=== PATIENT | female | born 1955 | race African-American/Black ===

== ENCOUNTER 2022-01-31 11:54 | Outpatient (CLI) | payer SELFPAY ==
[2022-01-31 22:04] LABS: Magnesium* 1.8 mg/dL (1.5-2.6)
== END 2022-01-31 11:55 | disposition home or self-care (01) ==
LOC: LKVREF 11:54
PROVIDERS: PCP Emergency Medicine; Visit Provider Emergency Medicine
DX: E83.42 Hypomagnesemia (principal)
CPT/HCPCS: 83735

== ENCOUNTER 2022-02-04 15:51 | Outpatient (CLI) | payer SELFPAY ==
[2022-02-05 15:11] LABS: Albumin* 4.8 g/dL (3.3-5.0)
[2022-02-05 15:14] LABS: Bilirubin Direct* 0.2 mg/dL (0.0-0.5); Bilirubin Total* 0.3 mg/dL (0.1-1.5); Total Protein* 8.3 g/dL (6.0-8.3)
[2022-02-05 15:15] LABS: Alanine Aminotransferase* 15 U/L (4-35); Alkaline Phosphatase* 69 U/L (40-150); Aspartate Amino Transferase* 19 U/L (12-35); Lipase* 99 U/L (23-300)
[2022-02-05 15:48] LABS: HIV 1/2/P24 Combo Screen* Negative (Negative)
[2022-02-05 17:20] LABS: Hepatitis C Virus Antibody* Negative (Negative)
== END 2022-02-04 15:52 | disposition home or self-care (01) ==
PROVIDERS: PCP Emergency Medicine; Visit Provider Physician Assistant Medical
DX: Z00.00 Encounter for general adult medical examination without abnormal findings (principal); I10 Essential (primary) hypertension; R73.03 Prediabetes; R53.83 Other fatigue; E87.6 Hypokalemia; E78.5 Hyperlipidemia, unspecified
CPT/HCPCS: 80076; 83690; 86703; 86803

== ENCOUNTER 2022-02-05 15:51 | Outpatient (CLI) | payer SELFPAY ==
[2022-02-05 21:46] LABS: H pylori Ag Stool* POSITIVE (Negative)
== END 2022-02-05 15:52 | disposition home or self-care (01) ==
LOC: LKVREF 17:33
PROVIDERS: PCP Emergency Medicine; Visit Provider Physician Assistant Medical
DX: I10 Essential (primary) hypertension (principal); R73.03 Prediabetes; E87.6 Hypokalemia; R53.83 Other fatigue; K21.9 Gastro-esophageal reflux disease without esophagitis
CPT/HCPCS: 87338

== ENCOUNTER 2022-02-13 14:17 | Observation (INO) | payer SELFPAY ==
[2022-02-13] VITALS (36 sets, daily range): BP systolic 117–238; BP diastolic 70–132; PULSE 73–123; RESP 16–20; TEMP 36.6–37.1; O2SAT 89–100; BMI 29.1
--- NOTE | 2022-02-13 | CRLHL7_ITS ---
For Patients: As a result of the Century Cures Act, medical imaging exams and procedure reports are released immediately into your electronic medical record. You may view this report before your referring provider. If you have questions, please contact your health care provider. HISTORY: Leg pain. TECHNIQUE: Ultrasound of the right and left lower extremity deep veins using crowell-scale, color Doppler, and spectral Doppler. COMPARISON: None. FINDINGS: Right: Common femoral, femoral, and popliteal veins are patent and compressible with normal response to augmentation. Deep femoral vein is patent and compressible. - Posterior tibial and peroneal veins are patent and compressible. Short-segment hypoechoic thrombus within what appears to be an intramuscular vein in the mid calf, likely a gastrocnemius vein. Involved vein is partially compressible. - Greater saphenous vein is patent and compressible. --- Left: Common femoral, femoral, and popliteal veins are patent and compressible with normal response to augmentation. Deep femoral vein is patent and compressible. - Posterior tibial vein is patent and compressible with normal response to augmentation. Peroneal vein is patent and compressible. - Greater saphenous vein is patent and compressible at the junction with the femoral vein. IMPRESSION: 1. DVT in an intramuscular vein in the mid right calf, likely a gastrocnemius vein. 2. No DVT in the left lower extremity. --- Called to Dr Robert Yeung on 02/13/22 at 1905 hours. Dictated by John Mckeon MD @ 02/13/2022 7:06:32 PM (Electronically Signed)
--- NOTE | 2022-02-13 15:24 | CRLHL7_ITS ---
For Patients: As a result of the Century Cures Act, medical imaging exams and procedure reports are released immediately into your electronic medical record. You may view this report before your referring provider. If you have questions, please contact your health care provider. INDICATION: Chest pain. TECHNIQUE: CT chest PE was acquired with 100 cc Isovue 370 IV contrast. COMPARISON: None. FINDINGS: Heart and vasculature: Contrast opacification of the pulmonary arterial tree is adequate. No sign of pulmonary embolism. Heart size is normal. Thoracic aorta and pulmonary artery are normal in caliber. Lungs and pleura: No suspicious nodules or infiltrates. No pleural effusions, pleural thickening, or pneumothorax. Lymph nodes/mediastinum: No mediastinal, hilar, or axillary adenopathy. Chest wall: No masses. Upper abdomen: No acute or significant findings. Bones: Unremarkable for age. IMPRESSION: No pulmonary embolism as questioned. Please note that all CT scans at this facility use dose modulation, iterative reconstruction, and/or weight-based dosing when appropriate to reduce radiation dose to as low as reasonably achievable. Dictated by Parish Sandhu MD @ 02/13/2022 6:00:32 PM (Electronically Signed)
--- NOTE | 2022-02-13 15:29 | ED_ITS ---
HPI - General Adult General Time Seen by Provider: 15:29 Date Seen: 02/13/22 Chief complaint: Chest Pain Stated complaint: Chest and Leg Pain Time Seen by Provider: 02/13/22 15:09 Source: patient Mode of arrival: ambulatory Limitations: no limitations History of Present Illness HPI narrative: Patient is a 66-year-old female who was referred from the clinic with ongoing chest pain after diagnosis of pneumonia at [facility]. She finished an antibiotic course and continues to have some left-sided chest discomfort. This is more pleuritic and it is tender to touch. She describes along the left breast bone medial to her breast she also says she has had some right calf pain, but has not noticed any swelling she states that hurts more when she walks. She has a complex medical history in her chart was reviewed. She has had a middle cerebral artery aneurysm, GERD, H pylori, hypertension, hypertensive urgency, elevated lipids, history of lactic acidosis. At this time she denies chest pain other than when she pushes on her chest or moves a certain way. She does still describe pain in her right calf especially when she walks but it is a little bit present at rest as well. She was concerned that she is not better from her pneumonia that she was diagnosed with that [facility] within the last week. Apparently the clinic her D-dimer slightly elevated. Related Data Home Medications Medication Instructions Recorded Confirmed aspirin 81 mg chewable tablet 81 mg PO QDAY 01/28/22 02/13/22 pantoprazole 40 mg tablet,delayed 40 mg PO QDAY 01/31/22 02/13/22 release rosuvastatin 20 mg tablet 20 mg PO QDAY 01/31/22 02/13/22 Previous Rx's Medication Instructions Recorded amlodipine 5 mg tablet 5 mg PO QDAY #30 tabs 01/31/22 carvedilol 12.5 mg tablet 12.5 mg PO BID #60 tabs 01/31/22 lisinopril 20 1 tab PO QDAY #30 tabs 01/31/22 mg-hydrochlorothiazide 12.5 mg tablet sucralfate 1 gram tablet (Carafate) 1 g PO Q4H #120 tabs 02/04/22 amoxicillin 500 mg tablet 1,000 mg PO Q12H #56 tabs 02/07/22 clarithromycin 500 mg tablet 500 mg PO BID #28 tabs 02/07/22 metformin 500 mg tablet,extended 500 mg PO DAILY #90 tabs 02/07/22 release 24 hr omeprazole 20 mg capsule,delayed 20 mg PO BID #60 caps 02/07/22 release Allergies Allergy/AdvReac Type Severity Reaction Status Date / Time hydralazine Allergy Severe tachycardia, Verified 02/13/22 11:34 increased HTN amlodipine AdvReac Unknown leg Verified 02/13/22 11:34 swelling Review of Systems Status of ROS: Reports: 10 or more systems reviewed and unremarkable except as noted in History and below [facility] Medical History Aneurysm of middle cerebral artery Hypokalemia Hypomagnesemia Lactic acidosis Family History Mother Diabetes High blood pressure Brother High blood pressure Social History Smoking Status: Never smoker Do you use any of these nicotine containing products: None Second hand tobacco smoke exposure: Yes How often do you have a drink containing alcohol: never How often do you have six or more drinks on one occasion: Less than monthly AUDIT-C Alcohol total score: 1 Non-prescribed substance use: denies use service: Yes Exam Narrative: Exam Narrative: Objective: Patient is alert orient x3 no distress Vital signs are largely unremarkable other than elevated blood pressure, O2 sat is 90% on room air HEENT is unremarkable no facial asymmetry neck is supple chest is clear no rales or wheezing heart rhythm regular 2/6 systolic ejection murmur occasional ectopic beat noted abdomen benign soft nontender extremities are no edema neurologic nonfocal negative Homans sign in the lower extremities she does describe some calf tenderness over on the right, but there is no redness . She feels some mild swelling the right lower extremity. Skin periphery is warm and dry Neurologic is nonfocal Const: Vital Signs, click to edit/add: Vital Signs - 24 hr 02/13/22 14:55 02/13/22 15:53 02/13/22 15:53 Temperature 97.9 F Pulse Rate 110 H Pulse Rate [Left P ulse Oximeter] 102 H Respiratory Rate 16 Blood Pressure 217/101 H Blood Pressure [Ri ght Upper Arm] 197/93 H Pulse Oximetry 98 96 96 Oxygen Delivery Me thod Room Air 02/13/22 15:54 02/13/22 15:55 02/13/22 17:32 Temperature Pulse Rate 111 H 108 H Pulse Rate [Left P ulse Oximeter] Respiratory Rate Blood Pressure Blood Pressure [Ri ght Upper Arm] Pulse Oximetry 96 89 Oxygen Delivery Me thod OxyMask Course Vital Signs Vital signs: Initial Vital Signs Temperature 97.9 F 02/13/22 14:55 Temperature Source Temporal Artery Scan 02/13/22 14:55 Pulse Rate 102 H 02/13/22 14:55 Pulse Rhythm 02/13/22 14:55 Pulse Strength 3+ Normal 02/13/22 14:55 Respiratory Rate 16 02/13/22 14:55 Blood Pressure 197/93 H 02/13/22 14:55 Blood Pressure Mean 127 02/13/22 14:55 Blood Pressure Position Sitting 02/13/22 14:55 Pulse Oximetry 98 02/13/22 14:55 Oxygen Delivery Method 02/13/22 14:55 Vital Signs Temperature 97.9 F 02/13/22 14:55 Pulse Rate 102 H 02/13/22 14:55 Respiratory Rate 16 02/13/22 14:55 Blood Pressure 197/93 H 02/13/22 14:55 Pulse Oximetry 98 02/13/22 14:55 Oxygen Delivery Method 02/13/22 14:55 Temperature 97.9 F 02/13/22 14:55 Pulse Rate 108 H 02/13/22 15:55 Respiratory Rate 16 02/13/22 14:55 Blood Pressure 217/101 H 02/13/22 15:53 Pulse Oximetry 89 02/13/22 15:55 Oxygen Delivery Method 02/13/22 17:32 Medical Decision Making [facility] Narrative Medical decision making narrative: Patient is a 66-year-old black female with a history of pneumonia, hypertension, some diarrhea since using antibiotics but she does not really complain about this at this time. She is most concerned about her chest discomfort that her pneumonia might not be improved. She did have an elevated D-dimer in the clinic, will get a chest CT as well as right lower extremity Doppler scan to rule out DVT, will also get a troponin laboratory studies, cardiac monitoring EKG. Disposition pending results of the above-mentioned studies. Addendum: Patient had a sudden drop in her O2 sat into the 70s an 80% range, she was put on O2 by mask. She seems to be running a narrow complex tachycardia in the 140 range. Will attempt to give IV fluids get an IV established CT scan of the chest and leg ultrasound. Need to rule out PE. Addendum: Patient now has a much better blood pressure perhaps 15 minutes after her tachycardic Severo, with normal sinus rhythm at a rate of 100-110. Addendum: Patient has EKG by my read shows sinus rhythm no obvious significant other abnormalities other than LVH, she has a Doppler scan of the lower extremities that show a superficial varicosity in the right calf but no DVT in either leg. Her CT scan of the chest is still being read by Radiology but by my read shows no obvious PE. Initially she had a desaturation event in the 80s and 70s% she felt somewhat short of breath but this improved and now her ABG is completely normal with the elevated piece O2 of 150. At this point given the desaturation event I think at admitted to the hospital for observation Addendum: Patient's blood pressure now is elevated in the 220 range. May give her Ativan IV as well as nitroglycerin sublingual. Comments and is here to evaluate the patient has a has accepted in admission. Addendum: The patient's CT scan of the chest by my review looks unremarkable radiology confirms. Given her hypoxic episode her chest pain, I think it be reasonable to admit her up overnight for observation and workup Dr. Davila her sin will follow the patient kindly. Patient family were in agreement Lab Data Labs: Lab Results 02/13/22 02/13/22 02/13/22 Range/Units 15:36 16:19 16:19 WBC 8.25 (4.50-11.00) K/uL RBC 4.63 (4.00-5.20) m/uL Hgb 13.7 (12.0-16.0) gm/dL Hct 40.5 (33.0-51.0) % MCV 88 (80-100) fL MCH 30 (26-34) pg MCHC 34 (32-36) gm/dL RDW Coeff of Colleen 12.1 (11.5-15.5) % Plt Count 254 (140-440) K/uL Neut % (Auto) 61.9 (42.0-72.0) % Lymph % (Auto) 28.7 (20-44) % Giles % (Auto) 7.2 (0.0-11.0) % Eos % (Auto) 1.0 (0.0-7.0) % Baso % (Auto) 0.4 (0.0-3.0) % Neut # (Auto) 5.11 (1.7-7.0) K/uL Lymph # (Auto) 2.37 (0.90-2.90) K/uL Giles # (Auto) 0.60 (0.00-0.90) K/UL Eos # (Auto) 0.08 (0.00-0.50) K/uL Baso # (Auto) 0.03 (0.00-0.30) K/uL Abs Immat Gran (auto) 0.07 (0.00-0.30) K/uL APTT 29 (23-33) Seconds D-Dimer Quant (PE/DVT) 0.56 H (0.00-0.50) ug/ml ABG pH (7.35-7.45) ABG pCO2 (35-45) mmHG ABG pO2 (80-105) mmHG ABG HCO3 (21-28) mmol/L ABG Total CO2 (21-30) mmol/l ABG O2 Saturation (92-100) % ABG Base Excess (-3.0-3.0) mmol/L Sodium (135-149) mmol/L Potassium (3.6-5.1) mmol/L Chloride (96-114) mmol/L Carbon Dioxide (20-32) mmol/L BUN (7-30) mg/dL Creatinine (0.5-1.5) mg/dL Estimated Creat Clear Estimated GFR ml/min Glucose (60-115) mg/dL Calcium (8.4-10.6) mg/dL Total Bilirubin (0.1-1.5) mg/dL Direct Bilirubin (0.0-0.5) mg/dL AST (12-35) U/L ALT (4-35) U/L Alkaline Phosphatase (40-150) U/L Troponin I (0.01-0.04) ng/mL C-Reactive Protein (0.5-1.0) mg/dL NT-Pro-B Natriuret Pep (0-125) PG/mL Total Protein (6.0-8.3) g/dL Albumin (3.3-5.0) g/dL SARS-CoV-2 (PCR) Negative SARS-CoV-2 (Negative) 02/13/22 02/13/22 02/13/22 Range/Units 16:19 16:19 16:22 WBC (4.50-11.00) K/uL RBC (4.00-5.20) m/uL Hgb (12.0-16.0) gm/dL Hct (33.0-51.0) % MCV (80-100) fL MCH (26-34) pg MCHC (32-36) gm/dL RDW Coeff of Colleen (11.5-15.5) % Plt Count (140-440) K/uL Neut % (Auto) (42.0-72.0) % Lymph % (Auto) (20-44) % Giles % (Auto) (0.0-11.0) % Eos % (Auto) (0.0-7.0) % Baso % (Auto) (0.0-3.0) % Neut # (Auto) (1.7-7.0) K/uL Lymph # (Auto) (0.90-2.90) K/uL Giles # (Auto) (0.00-0.90) K/UL Eos # (Auto) (0.00-0.50) K/uL Baso # (Auto) (0.00-0.30) K/uL Abs Immat Gran (auto) (0.00-0.30) K/uL APTT (23-33) Seconds D-Dimer Quant (PE/DVT) (0.00-0.50) ug/ml ABG pH 7.42 (7.35-7.45) ABG pCO2 45 (35-45) mmHG ABG pO2 31.0 L* (80-105) mmHG ABG HCO3 29 H (21-28) mmol/L ABG Total CO2 26 (21-30) mmol/l ABG O2 Saturation 61 L (92-100) % ABG Base Excess 3.9 H (-3.0-3.0) mmol/L Sodium 133 L (135-149) mmol/L Potassium 3.7 (3.6-5.1) mmol/L Chloride 97 (96-114) mmol/L Carbon Dioxide 26 (20-32) mmol/L BUN 10 (7-30) mg/dL Creatinine 0.8 (0.5-1.5) mg/dL Estimated Creat Clear 53.21 Estimated GFR 82 ml/min Glucose 176 H (60-115) mg/dL Calcium 9.6 (8.4-10.6) mg/dL Total Bilirubin 0.3 (0.1-1.5) mg/dL Direct Bilirubin 0.0 (0.0-0.5) mg/dL AST 26 (12-35) U/L ALT 18 (4-35) U/L Alkaline Phosphatase 73 (40-150) U/L Troponin I < 0.01 L (0.01-0.04) ng/mL C-Reactive Protein < 0.5 L (0.5-1.0) mg/dL NT-Pro-B Natriuret Pep 65 (0-125) PG/mL Total Protein 8.5 H (6.0-8.3) g/dL Albumin 4.8 (3.3-5.0) g/dL SARS-CoV-2 (PCR) (Negative) 02/13/22 Range/Units 17:20 WBC (4.50-11.00) K/uL RBC (4.00-5.20) m/uL Hgb (12.0-16.0) gm/dL Hct (33.0-51.0) % MCV (80-100) fL MCH (26-34) pg MCHC (32-36) gm/dL RDW Coeff of Colleen (11.5-15.5) % Plt Count (140-440) K/uL Neut % (Auto) (42.0-72.0) % Lymph % (Auto) (20-44) % Giles % (Auto) (0.0-11.0) % Eos % (Auto) (0.0-7.0) % Baso % (Auto) (0.0-3.0) % Neut # (Auto) (1.7-7.0) K/uL Lymph # (Auto) (0.90-2.90) K/uL Giles # (Auto) (0.00-0.90) K/UL Eos # (Auto) (0.00-0.50) K/uL Baso # (Auto) (0.00-0.30) K/uL Abs Immat Gran (auto) (0.00-0.30) K/uL APTT (23-33) Seconds D-Dimer Quant (PE/DVT) (0.00-0.50) ug/ml ABG pH 7.45 (7.35-7.45) ABG pCO2 39 (35-45) mmHG ABG pO2 150.0 H (80-105) mmHG ABG HCO3 27 (21-28) mmol/L ABG Total CO2 24 (21-30) mmol/l ABG O2 Saturation 98 (92-100) % ABG Base Excess 2.8 (-3.0-3.0) mmol/L Sodium (135-149) mmol/L Potassium (3.6-5.1) mmol/L Chloride (96-114) mmol/L Carbon Dioxide (20-32) mmol/L BUN (7-30) mg/dL Creatinine (0.5-1.5) mg/dL Estimated Creat Clear Estimated GFR ml/min Glucose (60-115) mg/dL Calcium (8.4-10.6) mg/dL Total Bilirubin (0.1-1.5) mg/dL Direct Bilirubin (0.0-0.5) mg/dL AST (12-35) U/L ALT (4-35) U/L Alkaline Phosphatase (40-150) U/L Troponin I (0.01-0.04) ng/mL C-Reactive Protein (0.5-1.0) mg/dL NT-Pro-B Natriuret Pep (0-125) PG/mL Total Protein (6.0-8.3) g/dL Albumin (3.3-5.0) g/dL SARS-CoV-2 (PCR) (Negative) Critical Care Time Critical Care Time Total Critical Care Time in Minutes: 70 Discharge Plan Discharge Clinical Impression: Hypoxia, Chest pain Patient Disposition: Admitted As Inpatient Condition: Improved
[2022-02-13] MEDS: ASPIRIN 81 MG TAB.CHEW 324 MG PO (15:47)
[2022-02-13 16:13] LABS: SARS PCR* Negative SARS-CoV-2 (Negative)
[2022-02-13 16:30] LABS: ABG PCO2 45 mmHG (35-45); Base Excess ABG 3.9 mmol/L (-3.0-3.0); HCO3 ABG 29 mmol/L (21-28); Oxygen Saturation ABG 61 % (92-100); TCO2 ABG 26 mmol/l (21-30); pH ABG 7.42 (7.35-7.45)
[2022-02-13 16:37] LABS: Basophils Absolute Auto 0.03 K/uL (0.00-0.30); Basophils Percent Auto 0.4 % (0.0-3.0); Eosinophils Absolute Auto 0.08 K/uL (0.00-0.50); Hematocrit 40.5 % (33.0-51.0); Hemoglobin* 13.7 gm/dL (12.0-16.0); Immature Granulocytes Abs Auto 0.07 K/uL (0.00-0.30); Lymphocytes Absolute Auto 2.37 K/uL (0.90-2.90); Lymphocytes Percent Auto 28.7 % (20-44); Mean Corpuscular HGB Conc 34 gm/dL (32-36); Mean Corpuscular Hemoglobin 30 pg (26-34); Mean Corpuscular Volume 88 fL (80-100); Monocytes Percent Auto 7.2 % (0.0-11.0); Neutrophils Absolute Auto 5.11 K/uL (1.7-7.0); Neutrophils Percent Auto 61.9 % (42.0-72.0); Platelet Count* 254 K/uL (140-440); RDW Coefficient of Variation % 12.1 % (11.5-15.5); Red Blood Count 4.63 m/uL (4.00-5.20); White Blood Count* 8.25 K/uL (4.50-11.00)
[2022-02-13 16:57] LABS: Albumin* 4.8 g/dL (3.3-5.0); Chloride* 97 mmol/L (96-114); Slide Review Reflex No; Sodium* 133 mmol/L (135-149)
[2022-02-13 16:58] LABS: Potassium* 3.7 mmol/L (3.6-5.1)
[2022-02-13 17:00] LABS: Aspartate Amino Transferase* 26 U/L (12-35); Bilirubin Total* 0.3 mg/dL (0.1-1.5); Carbon Dioxide* 26 mmol/L (20-32); Creatinine* 0.8 mg/dL (0.5-1.5); Est. Creatinine Clearance* 53.21; Estimated Glomerular Filt Rate 82 ml/min; Total Protein* 8.5 g/dL (6.0-8.3)
[2022-02-13 17:01] LABS: Alanine Aminotransferase* 18 U/L (4-35); Alkaline Phosphatase* 73 U/L (40-150); Blood Urea Nitrogen* 10 mg/dL (7-30); Calcium* 9.6 mg/dL (8.4-10.6); Glucose* 176 mg/dL (60-115)
[2022-02-13 17:09] LABS: NT Pro B Type NatriureticPept* 65 PG/mL (0-125)
[2022-02-13 17:19] LABS: C Reactive Protein* < 0.5 mg/dL (0.5-1.0); Troponin I* < 0.01 ng/mL (0.01-0.04)
[2022-02-13 17:27] LABS: Partial Thromboplastin Time* 29 Seconds (23-33)
[2022-02-13 17:27] LABS: ABG PCO2 39 mmHG (35-45); Base Excess ABG 2.8 mmol/L (-3.0-3.0); HCO3 ABG 27 mmol/L (21-28); Oxygen Saturation ABG 98 % (92-100); TCO2 ABG 24 mmol/l (21-30); pH ABG 7.45 (7.35-7.45)
[2022-02-13 17:43] LABS: D Dimer Quantitative* 0.56 ug/ml (0.00-0.50)
[2022-02-13] MEDS: NITROGLYCERIN 0.4 MG TAB.SUBL SUBLINGUAL (18:04)
[2022-02-13 18:11] LABS: INR 1.04 (0.91-1.10)
--- NOTE | 2022-02-13 18:35 | P.IMHP_ITS ---
Hospitalist- H&P: HPI History of Present Illness Date Seen: 02/13/22 Chief complaint: Chest and Leg Pain Narrative: Salo Abdi is a 66 year old female with a past medical history of hypertension, who presented to the ER today with her after being seen in the urgent care for chest pain. ED Course and Findings: - acute episode of symptomatic hypoxia that was associated with a narrow complex tachycardia (rate in the 140s), which resolved without medical intervention. Patient was symptomatic during her hypoxic event - hypertensive urgency (BP max 238/130). Received SL nitro x1 (of note, patient typically takes home BP medications at HS), which which seemed to improve symptoms - reassuring EKG and CT scan of chest. Small DVT in right gastrocnemius vein Past medical history includes: - Essential hypertension, diagnosed approximately 2 years ago. No history of gestational hypertension or high blood pressure when younger. Salo monitors her blood pressure at home and rarely gets systolic readings under 140. She is currently on lisinopril-hydrochlorothiazide daily (was on this b.i.d., but it was reduced to once daily secondary to hypokalemia) and 5 mg of amlodipine daily (was previously on 10 mg, this was decreased 2/2 edema). She was also on Coreg b.i.d. until very recently (bradycardic during an office visit, follow-up Holter monitor revealed sinus bradycardia without any other rhythm abnormalities). - recent diagnosis of H pylori. Patient was being seen for treatment resistant GERD, found to be positive for H pylori. She recently self discontinued her amoxicillin and clarithromycin secondary to diarrhea - non-insulin dependent DM2, recently had Metformin discontinued 2/2 lactic acidosis. A1C 6.7 Patient was admitted to [facility] from February 09 to February 10 for hypertensive urgency, weakness, fatigue, and palpitations. She was eventually diagnosed with pneumonia and discharged home with PCP follow-up. 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 Her PCP is aware of these findings. Per chart review from [facility], her last echocardiogram was performed on 01/29/2022 and exhibited: -normal left ventricular size with proximal septal thickening and normal systolic function with an EF of 60-65%, normal right ventricular size and function, trace to mild mitral and tricuspid regurgitation Salo lives with her ; they recently moved to [place] from [place]. 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 She has 5 adult children, all were born in [place]. She had no gestational hypertension or other complications during her pregnancies. She is a nonsmoker, nonalcohol user. Review of Systems Status of ROS: Reports: 10 or more systems reviewed and unremarkable except as noted in History and below Narrative: notes that patient snores at night, has occasional apnea (t his was communicated to PCP in the UC today, sleep study ordered). Minimal po intake over the past few days 2/2 diarrhea (presumed iatrogenic from antibiotics recently started for + H Pylori infection). [facility] Medical History (Updated 02/13/22 @ 23:00 by Sonya Blair MD) Aneurysm of middle cerebral artery Chest pain Hypokalemia Hypomagnesemia Lactic acidosis Family History Mother Diabetes High blood pressure Brother High blood pressure Social History Highest level of school completed/degree received: Associate degree: academic program Smoking Status: Never smoker Do you use any of these nicotine containing products: None Second hand tobacco smoke exposure: Yes How often do you have a drink containing alcohol: never How often do you have six or more drinks on one occasion: Less than monthly AUDIT-C Alcohol total score: 1 Non-prescribed substance use: denies use Caffeine: Yes service: Yes Meds Home Medications and Allergies Home Medications Medication Instructions Recorded Confirmed Type aspirin 81 mg chewable tablet 81 mg PO QDAY 01/28/22 02/13/22 History pantoprazole 40 mg tablet,delayed 40 mg PO QDAY 01/31/22 02/13/22 History release rosuvastatin 20 mg tablet 20 mg PO QDAY 01/31/22 02/13/22 History Home Medication Comments: The above medication list is not correct. Patient is also on lisinopril 20-hydrochlorothiazide 12.5 mg, taken at night She is on amlodipine 5 mg, taken at night She recently had carvedilol 12.5 mg b.i.d. discontinued, secondary to bradycardia She was recently started on amoxicillin and clarithromycin for H Pylori (in addition to her OMEPRAZOLE, not Pantoprazole). She has been holding that for the past 2 days 2/2 diarrhea Allergies Allergy/AdvReac Type Severity Reaction Status Date / Time hydralazine Allergy Severe tachycardia, Verified 02/13/22 11:34 increased HTN amlodipine AdvReac Unknown leg Verified 02/13/22 11:34 swelling Exam Narrative: Exam Narrative: GEN: Alert HEENT: Normal external ears, EOMIs bilaterally, no scleral icterus CV: Heart rate in the 100 range during my exam, soft systolic murmur heard best in left mid axillary line with radiation to left sternal border, no carotid bruits R: LCTA bilaterally without concerning wheezing, rales, or rhonchi, air movement adequate Ext: wwp, no concerning edema Skin: No concerning skin lesions or rashes on exposed skin Neuro: Nonfocal Psych: Appropriate Const: Vital Signs, click to edit/add: Vital Signs - 24 hr 02/13/22 14:55 02/13/22 15:53 02/13/22 15:53 Temperature 97.9 F Pulse Rate 110 H Pulse Rate [Left P ulse Oximeter] 102 H Respiratory Rate 16 Blood Pressure 217/101 H Blood Pressure [Ri ght Upper Arm] 197/93 H Pulse Oximetry 98 96 96 Oxygen Delivery Me thod Room Air 02/13/22 15:54 02/13/22 15:55 02/13/22 17:32 Temperature Pulse Rate 111 H 108 H Pulse Rate [Left P ulse Oximeter] Respiratory Rate Blood Pressure Blood Pressure [Ri ght Upper Arm] Pulse Oximetry 96 89 Oxygen Delivery Me thod OxyMask Hospitalist - H&P: Result Labs Labs: Short CBC 02/13/22 Range/Units 16:19 WBC 8.25 (4.50-11.00) K/uL Hgb 13.7 (12.0-16.0) gm/dL Hct 40.5 (33.0-51.0) % Plt Count 254 (140-440) K/uL BMP 02/13/22 16:19 Sodium 133 L Potassium 3.7 Chloride 97 Carbon Dioxide 26 BUN 10 Creatinine 0.8 Glucose 176 H Calcium 9.6 Cardiac Enzymes 02/13/22 Range/Units 16:19 Troponin I < 0.01 L (0.01-0.04) ng/mL Liver Function 02/13/22 Range/Units 16:19 Total Bilirubin 0.3 (0.1-1.5) mg/dL Direct Bilirubin 0.0 (0.0-0.5) mg/dL AST 26 (12-35) U/L ALT 18 (4-35) U/L Alkaline Phosphatase 73 (40-150) U/L Albumin 4.8 (3.3-5.0) g/dL Assessment and Plan Assessment and plan (1) Chest pain: Status: Acute Assessment and Plan: Differential diagnosis: Muscular/GERD given known H pylori infection, less likely to be ACS given negative troponin and reassuring EKG in the emergency room. No evidence of acute infection or PE on CT scan of chest. - admit to the hospital, follow serial troponins. Consider repeat echocardiogram if clinical status were to change (2) Hypoxia: Status: Acute Assessment and Plan: Acute episode of hypoxia in the emergency room, self resolved. This could be secondary to her tachycardic episode. No evidence of infection at this time, certainly could also have sleep apnea playing a role in her symptoms. She has been referred for a sleep study by her PCP. We will continue oximetry monitoring, obtain a.m. VBG with labs. (3) H. pylori infection: Problem comment: 02/05/2022-a positive H pylori; recommend starting treatment with clarithromycin 500 mg twice daily, amoxicillin a 1000 mg twice daily times 14 days plus omeprazole 20 mg daily.; Patient ended up with diarrhea, tachycardia, chest pain, pneumonia, identified at [facility] 02/09/2022. She called in to clinic on 02/11/2022, and I advised her to stop the amoxicillin and clarithromycin, as she was taking Levaquin that was prescribed by [facility] ER Status: Acute Assessment and Plan: Patient amenable to restarting antibiotics with probiotics during stay; still somewhat hesitant to be on these given diarrhea. (4) Witnessed episode of apnea: Problem comment: 02/13/2022-placed order for sleep study Status: Acute (5) GERD (gastroesophageal reflux disease): Status: Acute (6) Right leg DVT: Problem comment: Gastrocnemius vein Status: Acute Assessment and Plan: Reviewed with patient; given distal location, she has the option to anticoagulate or monitor with serial ultrasound. She would like to consider her options overnight and will discuss her choice and plan of care with the daytime hospitalist. Plan - per above - SCDs and ambulation for ambulation, initiate Lovenox tomorrow if not discharged home
[2022-02-13 19:19] LABS: Hemoglobin A1C* 6.73 % (0-5.6)
[2022-02-13] MEDS: AMLODIPINE 10 MG TABLET PO (20:01)
[2022-02-13] MEDS: ROSUVASTATIN CALCIUM 10 MG TABLET 20 MG PO (21:21)
[2022-02-13 21:46] LABS: Magnesium* 1.9 mg/dL (1.5-2.6)
[2022-02-13] MEDS: lisinopriL 20 MG TABLET PO (22:02)
[2022-02-13] MEDS: ACETAMINOPHEN 325 MG TABLET 650 MG PO (22:02)
[2022-02-13] MEDS: hydroCHLOROthiazide 12.5 MG CAPSULE PO (22:03)
--- NOTE | 2022-02-13 22:44 | PC.NURSE ---
Pt. up to floor from ED at 1900. Pt. is alert and oriented, pleasant and cooperative. is at bedside. Pt. rated headache pain 6/10 PRN Tylenol administered see eMAR. Pt. denied chest pain, N/V and SOB or diarrhea. Pt's oxygen is 98-100% on RA. IV in left AC is intact and patent. NSR on tele.
[2022-02-13 22:49] LABS: Troponin I* < 0.01 ng/mL (0.01-0.04)
[2022-02-14 03:00] VITALS: BP 126/62; PULSE 93; RESP 20; TEMP 36.6; O2SAT 99
[2022-02-14 03:17] LABS: HCO3 VBG 30 mmol/L (21-28); PCO2 VBG 45 mmHG (40-50); PO2 VBG 42.3 mmHG (25-47); pH VBG 7.431 (7.32-7.43)
[2022-02-14 03:33] LABS: Basophils Absolute Auto 0.02 K/uL (0.00-0.30); Basophils Percent Auto 0.2 % (0.0-3.0); Eosinophils Absolute Auto 0.13 K/uL (0.00-0.50); Eosinophils Percent Auto 1.5 % (0.0-7.0); Hematocrit 39.4 % (33.0-51.0); Hemoglobin* 13.5 gm/dL (12.0-16.0); Immature Granulocytes Abs Auto 0.02 K/uL (0.00-0.30); Lymphocytes Absolute Auto 2.35 K/uL (0.90-2.90); Lymphocytes Percent Auto 27.7 % (20-44); Mean Corpuscular HGB Conc 34 gm/dL (32-36); Mean Corpuscular Hemoglobin 30 pg (26-34); Mean Corpuscular Volume 88 fL (80-100); Monocytes Percent Auto 8.5 % (0.0-11.0); Neutrophils Absolute Auto 5.23 K/uL (1.7-7.0); Neutrophils Percent Auto 61.9 % (42.0-72.0); Platelet Count* 239 K/uL (140-440); RDW Coefficient of Variation % 12.3 % (11.5-15.5); White Blood Count* 8.47 K/uL (4.50-11.00)
[2022-02-14 03:34] LABS: Slide Review Reflex No
[2022-02-14 03:42] LABS: Albumin* 4.5 g/dL (3.3-5.0); Chloride* 98 mmol/L (96-114); Sodium* 136 mmol/L (135-149)
[2022-02-14 03:43] LABS: Potassium* 3.6 mmol/L (3.6-5.1)
[2022-02-14 03:45] LABS: Alanine Aminotransferase* 17 U/L (4-35); Alkaline Phosphatase* 61 U/L (40-150); Aspartate Amino Transferase* 23 U/L (12-35); Bilirubin Total* 0.4 mg/dL (0.1-1.5); Blood Urea Nitrogen* 8 mg/dL (7-30); Calcium* 9.6 mg/dL (8.4-10.6); Carbon Dioxide* 28 mmol/L (20-32); Creatinine* 0.7 mg/dL (0.5-1.5); Est. Creatinine Clearance* 53.21; Estimated Glomerular Filt Rate 97 ml/min; Glucose* 118 mg/dL (60-115); Total Protein* 7.9 g/dL (6.0-8.3)
[2022-02-14 04:04] LABS: Troponin I* < 0.01 ng/mL (0.01-0.04)
--- NOTE | 2022-02-14 07:07 | PC.NURSE ---
END OF SHIFT NOTE: PT PLEASANT AND COOPERATIVE, BUT FATIGUED. PT RATED HEADACHE 3/10 THAT WAS GETTING BETTER AFTER ADMINISTRATION OF PRN TYLENOL. SMALL DVT TO RIGHT CALF; DISCOMFORT TO RIGHT CALF WHEN PALPATED AND WITH ACTIVITY; RATED 4/10; NO DISCOMFORT AT REST. PABLITO STAYED THE NIGHT AT PT BEDSIDE. TELE READS NSRosana. JEAN ON RA; AFEBRILE.
[2022-02-14 07:32] VITALS: PULSE 77
[2022-02-14 07:41] VITALS: BP 149/87; PULSE 82; RESP 18; TEMP 36.8; O2SAT 100
[2022-02-14 08:00] VITALS: PULSE 82; RESP 18
[2022-02-14] MEDS: POTASSIUM BICARB 25 MEQ EFFERVESCENT TAB PO (09:18)
[2022-02-14] MEDS: LACTOBACILLUS ACIDOPHILUS 1 TABLET 1 TAB PO (09:20)
[2022-02-14] MEDS: ASPIRIN 81 MG TAB.CHEW PO (09:20)
[2022-02-14 10:26] VITALS: BP 191/96; PULSE 77; RESP 18; TEMP 36.8
--- NOTE | 2022-02-14 10:29 | PC.NURSE ---
Discharge-- Very pleasant and cooperative, alert and oriented patient discharged to home ambulatory at approximately 1000. VSS, though hypertensive, and pt is afebrile. SPO2 > 94% on RA. Pt c/o a mild headache this morning which she rated 3 out of 10 and declined intervention for it. LS CTA. Telemetry showed NSR. She denied nausea and ate 100% of a regular breakfast without difficulty. Discharge education was provided including diagnosis info, symptoms to report, medications and follow up plan. No further questions asked. SL was removed with tip intact.
--- NOTE | 2022-02-14 15:43 | P.DS_ITS ---
DS: Providers Provider Date Seen: 02/14/22 Date of admission: 02/14/22 09:23 Primary care physician: Yen Conti Admitting Clinician: Sonya Blair MD Attending Physician on discharge: Sonya Blair MD Date of Discharge: 02/14/22 DS: Diagnosis Discharge Diagnosis (1) Asymptomatic hypertensive urgency: Status: Acute Problem details: Patient has had long-standing history of hypertension. She has had fluctuating blood pressures over the last few weeks. Multiple changes to blood pressure medicines. My impression is that her blood pressure control is somewhat uncertain though probably suboptimal. I have recommended she return to taking her lisinopril hydrochlorothiazide twice a day, amlodipine at 5 mg daily. Will have her stop her carvedilol temporarily because there was a question of whether she was having significant bradycardia with this. I suspect she would benefit from a low-dose beta-sulema if she can tolerate it even with a pulse in the 50s. Patient is quite anxious. I think it is likely that her elevated blood pressure is caused by her anxiety and her headaches rather than the other way around. (2) Right leg DVT: Status: Acute Problem details: Gastrocnemius vein. Discussed at length with the treat this calf vein DVT. I offered her surveillance with repeat ultrasound as an alternative to anticoagulation. Patient tells me that she would worry about this DVT extending and becoming a pulmonary embolism. I indicated that I was worried that she would continue to visit the emergency room frequently for evaluation over the next few weeks and end up with multiple chest CT scans. Because of this we elected to initiate anticoagulation today. Apixaban 5 mg b.i.d. for 3 months (3) Hypoxia: Status: Acute Problem details: She had an episode of hypoxia in the emergency department. Possibly related to an apneic spell. Overnight in the hospital she has had O2 sats between 98 and 100% on room air and has had no dyspnea or apnea (4) Chest pain: Status: Acute Problem details: Troponins have been negative. Chest pain is resolved. May benefit from further cardiac evaluation. Echocardiogram done elsewhere recently was unremarkable (5) Witnessed episode of apnea: Status: Acute Problem details: 02/13/2022-placed order for sleep study (6) Hypokalemia: Status: Acute Problem details: Low-dose potassium replacement (7) Anxiety: Status: Acute Problem details: I think this is her most troubling problem. She continues to worry about her headaches, high blood pressure, stomach and now her DVT. Specifically addressing her anxiety may be beneficial as well DS: Summary Hospital Course Hospital Course: 66-year-old female admitted to the hospital with elevation of blood pressure, episode of hypoxia, calf DVT. Without any specific therapy other than resuming her home medications she got better overnight. She had normalization of her blood pressure, normal oxygen levels, resolution of her chest pain, improvement in her nausea. Status at Discharge Functional status at discharge: independent ambulation Overall status at discharge: patient is back to baseline Time Spent with Patient Time attestation: Total time spent providing and/or coordinating discharge services: Time spent: Greater than 30 minutes Exam Narrative: Exam Narrative: She is alert and appears in no distress. Head is normal. Eyes normal. Speech is normal. Respirations are clear to auscultation. Cardiovascular: S1, S2, regular rate and rhythm. No murmur gallop or rub. Abdomen is soft without tenderness or mass. Extremities without edema. Intact peripheral pulses. Const: Vital Signs, click to edit/add: Vital Signs - 24 hr 02/13/22 15:53 02/13/22 15:53 02/13/22 15:54 Temperature Pulse Rate 110 H 111 H Pulse Rate [Pulse Oximeter] Respiratory Rate Blood Pressure 217/101 H Blood Pressure [Ri ght Arm] Pulse Oximetry 96 96 96 Oxygen Delivery Me thod 02/13/22 15:55 02/13/22 17:32 02/13/22 16:47 Temperature Pulse Rate 108 H 109 H Pulse Rate [Pulse Oximeter] Respiratory Rate Blood Pressure Blood Pressure [Ri ght Arm] Pulse Oximetry 89 99 Oxygen Delivery Me thod OxyMask 02/13/22 16:49 02/13/22 16:50 02/13/22 16:55 Temperature Pulse Rate 111 H 103 H 94 Pulse Rate [Pulse Oximeter] Respiratory Rate Blood Pressure 214/107 H Blood Pressure [Ri ght Arm] Pulse Oximetry 99 98 98 Oxygen Delivery Me thod 02/13/22 17:00 02/13/22 17:02 02/13/22 17:05 Temperature Pulse Rate 95 94 91 Pulse Rate [Pulse Oximeter] Respiratory Rate Blood Pressure 188/102 H Blood Pressure [Ri ght Arm] Pulse Oximetry 98 98 98 Oxygen Delivery Me thod 02/13/22 17:10 02/13/22 17:15 02/13/22 17:20 Temperature Pulse Rate 88 83 92 Pulse Rate [Pulse Oximeter] Respiratory Rate Blood Pressure Blood Pressure [Ri ght Arm] Pulse Oximetry 96 97 97 Oxygen Delivery Me thod 02/13/22 17:25 02/13/22 17:30 02/13/22 17:32 Temperature Pulse Rate 74 99 107 H Pulse Rate [Pulse Oximeter] Respiratory Rate Blood Pressure 238/132 H Blood Pressure [Ri ght Arm] Pulse Oximetry 95 95 96 Oxygen Delivery Me thod 02/13/22 17:35 02/13/22 17:40 02/13/22 17:45 Temperature Pulse Rate 93 112 H 98 Pulse Rate [Pulse Oximeter] Respiratory Rate Blood Pressure Blood Pressure [Ri ght Arm] Pulse Oximetry 96 91 97 Oxygen Delivery Me thod 02/13/22 17:50 02/13/22 17:53 02/13/22 17:55 Temperature Pulse Rate 89 102 H 97 Pulse Rate [Pulse Oximeter] Respiratory Rate Blood Pressure 206/104 H Blood Pressure [Ri ght Arm] Pulse Oximetry 97 97 99 Oxygen Delivery Me thod 02/13/22 18:00 02/13/22 18:02 02/13/22 18:05 Temperature Pulse Rate 104 H 114 H 123 H Pulse Rate [Pulse Oximeter] Respiratory Rate Blood Pressure 191/96 H Blood Pressure [Ri ght Arm] Pulse Oximetry 96 92 93 Oxygen Delivery Me thod 02/13/22 18:10 02/13/22 18:15 02/13/22 18:20 Temperature Pulse Rate 109 H 102 H 96 Pulse Rate [Pulse Oximeter] Respiratory Rate Blood Pressure Blood Pressure [Ri ght Arm] Pulse Oximetry 95 98 97 Oxygen Delivery Me thod 02/13/22 18:40 02/13/22 18:45 02/13/22 19:24 Temperature Pulse Rate 112 H 110 H Pulse Rate [Pulse Oximeter] Respiratory Rate Blood Pressure Blood Pressure [Ri ght Arm] Pulse Oximetry 94 95 100 Oxygen Delivery Me thod 02/13/22 19:00 02/13/22 19:20 02/13/22 22:00 Temperature 98.8 F 98.8 F Pulse Rate 85 Pulse Rate [Pulse Oximeter] Respiratory Rate 20 20 Blood Pressure Blood Pressure [Ri ght Arm] 193/114 H 193/114 H Pulse Oximetry 98 100 Oxygen Delivery Me thod Room Air OxyMask Room Air OxyMask 02/13/22 22:00 02/13/22 23:45 02/13/22 23:45 Temperature 98.5 F 98.5 F Pulse Rate Pulse Rate [Pulse Oximeter] 83 Respiratory Rate 20 16 16 Blood Pressure Blood Pressure [Ri ght Arm] 144/77 H 117/70 Pulse Oximetry 98 98 Oxygen Delivery Me thod Room Air Room Air 02/13/22 23:45 02/14/22 03:00 02/14/22 07:41 Temperature 97.9 F 98.2 F Pulse Rate 73 Pulse Rate [Pulse Oximeter] 93 82 Respiratory Rate 20 18 Blood Pressure Blood Pressure [Ri ght Arm] 126/62 149/87 H Pulse Oximetry 99 100 Oxygen Delivery Me thod Room Air Room Air 02/14/22 08:00 02/14/22 07:32 02/14/22 10:26 Temperature 98.2 F Pulse Rate 77 77 Pulse Rate [Pulse Oximeter] 82 Respiratory Rate 18 18 Blood Pressure 191/96 H Blood Pressure [Ri ght Arm] Pulse Oximetry Oxygen Delivery Me thod Documenting provider has reviewed patient's vital signs: yes DS: Data Data Completed and Pending Labs on day of discharge: Labs from last 24 hours 02/14/22 02/14/22 02/14/22 03:10 03:10 03:10 WBC 8.47 RBC 4.50 Hgb 13.5 Hct 39.4 MCV 88 MCH 30 MCHC 34 RDW Coeff of Colleen 12.3 Plt Count 239 Neut % (Auto) 61.9 Lymph % (Auto) 27.7 [place] % (Auto) 8.5 Eos % (Auto) 1.5 Baso % (Auto) 0.2 Neut # (Auto) 5.23 Lymph # (Auto) 2.35 [place] # (Auto) 0.70 Eos # (Auto) 0.13 Baso # (Auto) 0.02 Abs Immat Gran (auto) 0.02 INR APTT D-Dimer Quant (PE/DVT) ABG pH ABG pCO2 ABG pO2 ABG HCO3 ABG Total CO2 ABG O2 Saturation ABG Base Excess VBG pH 7.431 H VBG pCO2 45 VBG pO2 42.3 VBG HCO3 30 H Sodium 136 Potassium 3.6 Chloride 98 Carbon Dioxide 28 BUN 8 Creatinine 0.7 Estimated Creat Clear 53.21 Estimated GFR 97 Glucose 118 H Hemoglobin A1c Calcium 9.6 Magnesium Total Bilirubin 0.4 Direct Bilirubin AST 23 ALT 17 Alkaline Phosphatase 61 Troponin I < 0.01 L C-Reactive Protein NT-Pro-B Natriuret Pep Total Protein 7.9 Albumin 4.5 SARS-CoV-2 (PCR) 02/13/22 02/13/22 02/13/22 22:14 17:20 16:22 WBC RBC Hgb Hct MCV MCH MCHC RDW Coeff of Colleen Plt Count Neut % (Auto) Lymph % (Auto) [place] % (Auto) Eos % (Auto) Baso % (Auto) Neut # (Auto) Lymph # (Auto) [place] # (Auto) Eos # (Auto) Baso # (Auto) Abs Immat Gran (auto) INR APTT D-Dimer Quant (PE/DVT) ABG pH 7.45 7.42 ABG pCO2 39 45 ABG pO2 150.0 H 31.0 L* ABG HCO3 27 29 H ABG Total CO2 24 26 ABG O2 Saturation 98 61 L ABG Base Excess 2.8 3.9 H VBG pH VBG pCO2 VBG pO2 VBG HCO3 Sodium Potassium Chloride Carbon Dioxide BUN Creatinine Estimated Creat Clear Estimated GFR Glucose Hemoglobin A1c Calcium Magnesium Total Bilirubin Direct Bilirubin AST ALT Alkaline Phosphatase Troponin I < 0.01 L C-Reactive Protein NT-Pro-B Natriuret Pep Total Protein Albumin SARS-CoV-2 (PCR) 02/13/22 02/13/22 02/13/22 16:19 16:19 16:19 WBC RBC Hgb Hct MCV MCH MCHC RDW Coeff of Colleen Plt Count Neut % (Auto) Lymph % (Auto) [place] % (Auto) Eos % (Auto) Baso % (Auto) Neut # (Auto) Lymph # (Auto) [place] # (Auto) Eos # (Auto) Baso # (Auto) Abs Immat Gran (auto) INR APTT D-Dimer Quant (PE/DVT) ABG pH ABG pCO2 ABG pO2 ABG HCO3 ABG Total CO2 ABG O2 Saturation ABG Base Excess VBG pH VBG pCO2 VBG pO2 VBG HCO3 Sodium 133 L Potassium 3.7 Chloride 97 Carbon Dioxide 26 BUN 10 Creatinine 0.8 Estimated Creat Clear 53.21 Estimated GFR 82 Glucose 176 H Hemoglobin A1c 6.73 H Calcium 9.6 Magnesium 1.9 Total Bilirubin 0.3 Direct Bilirubin 0.0 AST 26 ALT 18 Alkaline Phosphatase 73 Troponin I < 0.01 L C-Reactive Protein < 0.5 L NT-Pro-B Natriuret Pep 65 Total Protein 8.5 H Albumin 4.8 SARS-CoV-2 (PCR) 02/13/22 02/13/22 02/13/22 16:19 16:19 15:36 WBC 8.25 RBC 4.63 Hgb 13.7 Hct 40.5 MCV 88 MCH 30 MCHC 34 RDW Coeff of Colleen 12.1 Plt Count 254 Neut % (Auto) 61.9 Lymph % (Auto) 28.7 [place] % (Auto) 7.2 Eos % (Auto) 1.0 Baso % (Auto) 0.4 Neut # (Auto) 5.11 Lymph # (Auto) 2.37 [place] # (Auto) 0.60 Eos # (Auto) 0.08 Baso # (Auto) 0.03 Abs Immat Gran (auto) 0.07 INR 1.04 APTT 29 D-Dimer Quant (PE/DVT) 0.56 H ABG pH ABG pCO2 ABG pO2 ABG HCO3 ABG Total CO2 ABG O2 Saturation ABG Base Excess VBG pH VBG pCO2 VBG pO2 VBG HCO3 Sodium Potassium Chloride Carbon Dioxide BUN Creatinine Estimated Creat Clear Estimated GFR Glucose Hemoglobin A1c Calcium Magnesium Total Bilirubin Direct Bilirubin AST ALT Alkaline Phosphatase Troponin I C-Reactive Protein NT-Pro-B Natriuret Pep Total Protein Albumin SARS-CoV-2 (PCR) Negative SARS-CoV-2 Discharge Plan Discharge Disposition: Home, Self-Care Date of Admission: 02/14/22 09:23 Attending Physician on Admission: Sonya Blair Primary Care Provider: Yen Conti Condition: Improved Anticipated Discharge Date/Time: 02/14/22 09:00 Discharge Medications: New potassium chloride 10 mEq tablet extended release 10 meq PO DAILY Qty: 30 2RF apixaban 5 mg tablet 5 mg PO BID Qty: 60 2RF Continued rosuvastatin 20 mg tablet 20 mg PO DAILY aspirin 81 mg tablet,chewable 81 mg PO DAILY sucralfate [Carafate] 1 gram tablet 1 g PO Q4H Qty: 120 0RF Rx Instructions: 1 tablet 4 x per day for acid reflux amlodipine 5 mg tablet 5 mg PO HS clarithromycin 500 mg tablet 500 mg PO BID Qty: 28 0RF Rx Instructions: Take 1 tablet twice daily times 14 days for H pylori infection amoxicillin 500 mg tablet 1,000 mg PO Q12H Qty: 56 0RF Rx Instructions: Take 2 tablets (1000 mg), 2 times daily for 14 days For H pylori infection omeprazole 20 mg capsule,delayed release(DR/EC) 20 mg PO BID Qty: 60 0RF Rx Instructions: Take 1 capsule twice a day x1 month for H pylori infection Hold pantoprazole metformin 500 mg tablet extended release 24 hr 500 mg PO DAILY Qty: 90 0RF Hold Instructions: holding for elevated lactate Rx Instructions: once tablet daily for diabetes Changed lisinopril-hydrochlorothiazide 20-12.5 mg tablet 1 tab PO BID Qty: 60 0RF Discontinued pantoprazole 40 mg tablet,delayed release (DR/EC) 40 mg PO QDAY carvedilol 12.5 mg tablet 12.5 mg PO BID Qty: 60 0RF Hold Instructions: stopped 02/09 for bradycardia Rx Instructions: must administer with a meal/food Discharge Orders: Discharge Order (Routine); Ordered 02/14/22 Ordered By: Noam Chavis Patient Education: Potassium Chloride (By mouth) (K-Dur, K-Shea, K-Tab, Osei Mur), Apixaban (By mouth), Chest Pain (DC), Anxiety (GEN) Activity Restrictions/Additional Instructions: See your doctor next week to recheck your blood pressure and check your electrolytes and kidney function. Talk to your doctor about your nausea, anxiety, chest pain and shortness of breath. You may need more evaluation for these things. Activity Level: Activity as Tolerated Discharge Diet: Heart Healthy (2 gm sodium, low fat) Follow Up Appointments: Yen Conti MD [Primary Care Provider] - 02/21/22 1:30 pm Forms: [employer] Info Instructions Hospital Course: 66-year-old female admitted to the hospital with elevation of blood pressure, episode of hypoxia, calf DVT. Without any specific therapy other than resuming her home medications she got better overnight. She had normalization of her blood pressure, normal oxygen levels, resolution of her chest pain, improvement in her nausea.
== END 2022-02-14 10:35 | disposition home or self-care (01) ==
LOC: ED 18:00 → MEDSURG 18:59
PROVIDERS: Admitting Provider Family Medicine; Emergency Provider Family Medicine; PCP Emergency Medicine; Visit Provider Family Medicine
DX: R07.9 Chest pain, unspecified (principal); I16.0 Hypertensive urgency; R09.02 Hypoxemia; F41.9 Anxiety disorder, unspecified; Z09 Encounter for follow-up examination after completed treatment for conditions other than malignant neoplasm; K21.9 Gastro-esophageal reflux disease without esophagitis; E87.6 Hypokalemia; R06.81 Apnea, not elsewhere classified; I82.401 Acute embolism and thrombosis of unspecified deep veins of right lower extremity; Z79.82 Long term (current) use of aspirin; Z79.84 Long term (current) use of oral hypoglycemic drugs; E11.9 Type 2 diabetes mellitus without complications; Z87.01 Personal history of pneumonia (recurrent); R79.89 Other specified abnormal findings of blood chemistry; I49.8 Other specified cardiac arrhythmias; I83.91 Asymptomatic varicose veins of right lower extremity; R06.02 Shortness of breath; I10 Essential (primary) hypertension; A04.8 Other specified bacterial intestinal infections; B96.81 Helicobacter pylori [H. pylori] as the cause of diseases classified elsewhere; R00.0 Tachycardia, unspecified; R93.89 Abnormal findings on diagnostic imaging of other specified body structures
CPT/HCPCS: 36415; 36600; 71260; 80048; 80053; 80076; 82803; 82947; 82962; 83036; 83735; 83880; 84484; 85025; 85379; 85610; 85730; 86140; 87635; 93005; 93970; 93971; 94761; 99285; 99291; A9270; G0378; Q9967

== ENCOUNTER 2022-02-21 14:11 | Outpatient (CLI) | payer SELFPAY ==
[2022-02-21 21:42] LABS: Magnesium* 1.7 mg/dL (1.5-2.6)
== END 2022-02-21 14:12 | disposition home or self-care (01) ==
PROVIDERS: PCP Emergency Medicine; Visit Provider Physician Assistant Medical
DX: E87.6 Hypokalemia (principal); R00.0 Tachycardia, unspecified
CPT/HCPCS: 83735

== ENCOUNTER 2022-03-06 11:13 | Outpatient (CLI) | payer SELFPAY | END 2022-03-06 11:14 | disposition home or self-care (01) | LOC: LKVREF 11:21 | PROVIDERS: PCP Emergency Medicine; Visit Provider Physician Assistant Medical | DX: R53.83 Other fatigue (principal); I10 Essential (primary) hypertension; R73.03 Prediabetes; K21.9 Gastro-esophageal reflux disease without esophagitis | CPT/HCPCS: 84443 ==

== ENCOUNTER 2022-03-07 14:46 | Outpatient (CLI) | payer SELFPAY ==
--- NOTE | 2022-03-07 15:00 | CRLHL7_ITS ---
For Patients: As a result of the Century Cures Act, medical imaging exams and procedure reports are released immediately into your electronic medical record. You may view this report before your referring provider. If you have questions, please contact your health care provider. INDICATION: Re-evaluate possible clot COMPARISON: 02/13/2022 TECHNIQUE: A compression venous ultrasound exam was performed of the right lower extremity using crowell-scale imaging, color Doppler and spectral Doppler analysis. FINDINGS: Sonographic imaging of the right lower extremity demonstrates normal compressibility and color Doppler venous blood flow within the common femoral vein, deep femoral vein, and the proximal greater saphenous vein. Within the thigh, the femoral vein is patent and compressible. At a lower level, the popliteal and posterior tibial veins also show normal compressibility and color Doppler venous blood flow. Limited imaging of the contralateral groin demonstrates a normal spectral waveform and color Doppler venous blood flow within the left common femoral vein. Similar appearance to the right mid medial calf, see images 16-17/19. In this area there is a focus of decreased echogenicity without vascularity. IMPRESSION: Similar appearance of the medial right calf tissues, particularly regarding an area of nonvascular decreased echogenicity (possibly representing fluid) associated with the medial gastrocnemius muscle. On this exam, I do not see evidence of venous clot. Anticoagulation should be discontinued. If the patient has persistent calf muscle pain consider further evaluation with MRI to assess for muscle tear. Dictated by Daquan Crow MD @ 03/07/2022 4:12:31 PM (Electronically Signed)
== END 2022-03-07 14:47 | disposition home or self-care (01) ==
LOC: US 14:51
PROVIDERS: PCP Physician Assistant Medical; Visit Provider Physician Assistant Medical
DX: I82.401 Acute embolism and thrombosis of unspecified deep veins of right lower extremity (principal); A04.8 Other specified bacterial intestinal infections; K21.9 Gastro-esophageal reflux disease without esophagitis; K92.0 Hematemesis
CPT/HCPCS: 93971

== ENCOUNTER 2022-03-25 09:00 | Outpatient (CLI) | payer SELFPAY ==
[2022-03-25 23:32] LABS: H pylori Ag Stool* Negative (Negative)
== END 2022-03-25 09:01 | disposition home or self-care (01) ==
LOC: LKVREF 14:52
PROVIDERS: PCP Physician Assistant Medical; Visit Provider Physician Assistant Medical
DX: A04.8 Other specified bacterial intestinal infections (principal); K21.9 Gastro-esophageal reflux disease without esophagitis; K92.0 Hematemesis
CPT/HCPCS: 87338

== ENCOUNTER 2023-02-20 13:55 | Outpatient (CLI) | payer MEDICARE, SELFPAY | END 2023-02-20 13:56 | disposition home or self-care (01) | LOC: LKVREF 14:02 | PROVIDERS: PCP Physician Assistant Medical; Visit Provider Physician Assistant Medical | DX: E87.6 Hypokalemia (principal); R73.03 Prediabetes; I10 Essential (primary) hypertension | CPT/HCPCS: 84443 ==

== ENCOUNTER 2023-02-25 10:10 | Outpatient (CLI) | payer MEDICARE, SELFPAY | END 2023-02-25 10:11 | disposition home or self-care (01) | LOC: NFLDREF 02-28 06:04 | PROVIDERS: PCP Physician Assistant Medical; Referring Provider Physician Assistant Medical; Visit Provider Physician Assistant Medical | DX: E78.5 Hyperlipidemia, unspecified (principal) | CPT/HCPCS: 80061 ==

== ENCOUNTER 2023-12-11 12:00 | Outpatient (CLI) | payer MEDICARE, SELFPAY | END 2023-12-11 12:01 | disposition home or self-care (01) | LOC: LKVREF 12:02 | PROVIDERS: PCP Physician Assistant Medical; Visit Provider Physician Assistant Medical | DX: E11.9 Type 2 diabetes mellitus without complications (principal); I10 Essential (primary) hypertension; Z79.84 Long term (current) use of oral hypoglycemic drugs | CPT/HCPCS: 82043; 82570 ==